=== PATIENT | female | born 1995 | race African-American/Black ===

== ENCOUNTER 2023-01-10 05:10 | Inpatient (IN) | payer BC ==
[2023-01-10 06:04] VITALS: BMI 41.9
[2023-01-10] MEDS ORDERED: Docusate 100 MG CAP PO PRN (06:04)
[2023-01-10] MEDS ORDERED: fentaNYL 50 mcg/mL 1 mL Vial SLOW IVP PRN (06:04)
[2023-01-10] MEDS ORDERED: Methylergonovine 0.2 MG/ML VIAL IM PRN (06:04)
[2023-01-10] MEDS ORDERED: Carboprost 250 MCG/ML AMP IM PRN (06:04)
[2023-01-10] MEDS ORDERED: Ondansetron PF 4 MG/2 ML Vial IVP PRN ×3 (06:04→16:11)
[2023-01-10] MEDS ORDERED: hydrALAZINE 20 MG/ML VIAL SLOW IVP PRN ×2 (06:04→16:11)
[2023-01-10] MEDS ORDERED: Tranexamic Acid 1,000 MG/10 ML VIAL IVP PRN (06:04)
[2023-01-10] MEDS ORDERED: Diphenoxylate HCl/Atropine Tablet PO PRN (06:04)
[2023-01-10] MEDS ORDERED: Promethazine HCl 25 MG/ML VIAL IM PRN ×3 (06:04→16:11)
[2023-01-10] MEDS ORDERED: Acetaminophen 500 MG TAB PO PRN (06:04)
[2023-01-10] MEDS ORDERED: Misoprostol 200 MCG TAB PR PRN (06:04)
[2023-01-10] MEDS ORDERED: Acetaminophen/Codeine 30-300mg Tablet PO PRN (06:06)
[2023-01-10] MEDS ORDERED: HYDROcodone/Acetaminophen 5/325 mg Tablet PO PRN (06:06)
[2023-01-10] MEDS ORDERED: Lidocaine 1% (PF) 30 ML VIAL SC PRN (06:06)
[2023-01-10] MEDS ORDERED: Ibuprofen 800 MG TAB PO PRN (06:06)
[2023-01-10] MEDS ORDERED: Oxytocin 30 units/NS 500 ML 500 ML IV SCH (06:15)
[2023-01-10] MEDS ORDERED: Lactated Ringer's 1,000 ML IV SCH (06:15)
[2023-01-10 06:54] LABS: Hematocrit 33.3 % (34.9-44.5); Hemoglobin 10.9 g/dL (12.0-15.5); Mean Corpuscular HGB CONC 32.7 g/dL (32.0-36.0); Mean Corpuscular Hemoglobin 25.2 pg (27.0-33.0); Mean Corpuscular Volume 76.9 fl (81.6-98.3); Platelet Count 163 10x3/uL (150-450); RBC Distribution Width 13.7 % (11.5-14.5); Red Blood Cell (RBC) Count 4.33 10x6/uL (3.90-5.03); White Blood Cell (WBC) Count 7.7 10x3/uL (3.5-10.5)
[2023-01-10 07:29] LABS: HBSAg Index 0.18 S/CO (0-0.99); Hep B Surf Ag - L&D Non-Reactive S/CO (NonReactive); Syphilis Antibody Nonreactive (Nonreactive); Syphilis Antibody Index 0.06 S/CO (<1.00 Non-Reactive)
[2023-01-10] MEDS ORDERED: Bupivacaine 0.25% HCL 30 ML VIAL ONE (08:00)
[2023-01-10] MEDS ORDERED: fentaNYL/Ropivacaine Epidural 100 ML ONE (10:46)
[2023-01-10] MEDS ORDERED: Naloxone HCl 0.4 mg/ml Vial IVP PRN ×2 (11:25)
[2023-01-10] MEDS ORDERED: Moisturizing Cream (Eucerin) 113 GM JAR TOP PRN (11:25)
[2023-01-10] MEDS ORDERED: Lactated Ringer's 500 ML IV PRN (11:25)
[2023-01-10] MEDS ORDERED: ePHEDrine Sulfate 50 MG/10 ML VIAL SLOW IVP PRN (11:25)
[2023-01-10] MEDS ORDERED: diphenhydrAMINE 50 MG/ML VIAL IVP PRN (11:25)
[2023-01-10] MEDS ORDERED: Acetaminophen 325 MG TAB PO PRN (11:25)
[2023-01-10] MEDS ORDERED: fentaNYL 2 mcg/Ropivacaine 0.2% Epidural 100 ML CADD EPIDURAL SCH (11:30)
[2023-01-10] MEDS ORDERED: Communication Order-Pharmacy FS SCH (11:30)
[2023-01-10] MEDS ORDERED: Lidocaine 1% (PF) 30 ML VIAL ONE (13:42)
[2023-01-10] MEDS ORDERED: Lanolin Ointment 7 GM TUBE TOP PRN (16:11)
[2023-01-10] MEDS ORDERED: Benzocaine-Menthol 82.5 ML CAN TOP PRN (16:11)
[2023-01-10] MEDS ORDERED: diphenhydrAMINE 25 MG CAP PO PRN (16:11)
[2023-01-10] MEDS ORDERED: Boostrix 0.5 ML (Tdap) VIAL (>/=7 yrs of age) IM ONE (16:11)
[2023-01-10] MEDS ORDERED: Milk Of Magnesia 30 ML UDCUP PO PRN (16:11)
[2023-01-10] MEDS ORDERED: Bisacodyl 10 MG SUPP PR PRN (16:11)
[2023-01-10] MEDS ORDERED: Preparation H Ointment 28 GM TUBE PR PRN (16:11)
[2023-01-10] MEDS: Ferrous Sulfate 325 MG TAB PO SCH (19:23)
[2023-01-10] MEDS: Ibuprofen 800 MG TAB PO SCH (21:04)
[2023-01-10] MEDS: Docusate 100 MG CAP PO SCH (21:04)
[2023-01-11] MEDS: HYDROcodone/Acetaminophen 5/325 mg Tablet PO PRN ×4 (00:53→20:18)
[2023-01-11] MEDS: Ibuprofen 800 MG TAB PO SCH ×2 (05:18→14:20)
[2023-01-11] MEDS: Ferrous Sulfate 325 MG TAB PO SCH ×2 (07:14→18:00)
[2023-01-11] MEDS ORDERED: Prenatal Vitamin 1 TAB PO SCH (09:00)
[2023-01-11] MEDS: Docusate 100 MG CAP PO SCH (10:38)
[2023-01-11 12:37] VITALS: BP 133/62; TEMP 98.5
== END 2023-01-11 21:40 | disposition home or self-care (01) | DRG 805 ==
LOC: CSHLD/OP 05:10 → CSHLD 06:18 → CSHANTE 18:24
PROVIDERS: ADMIT Student in an Organized Health Care Education/Training Program; ATTEND Student in an Organized Health Care Education/Training Program
PROC: 10E0XZZ Delivery of Products of Conception, External Approach (ICD-10-PCS; principal; 2023-01-10)
PROC: 0KQM0ZZ Repair Perineum Muscle, Open Approach (ICD-10-PCS; 2023-01-10)
PROC: 3E0234Z Introduction of Serum, Toxoid and Vaccine into Muscle, Percutaneous Approach (ICD-10-PCS; 2023-01-10)
DX: O42.02 Full-term premature rupture of membranes, onset of labor within 24 hours of rupture (principal); U07.1 COVID-19; Z37.0 Single live birth; O98.52 Other viral diseases complicating childbirth; Z3A.38 38 weeks gestation of pregnancy; Z79.82 Long term (current) use of aspirin; Z88.1 Allergy status to other antibiotic agents; O70.1 Second degree perineal laceration during delivery; Z67.41 Type O blood, Rh negative; Z23 Encounter for immunization
CPT/HCPCS: 36415; 51702; 85027; 85461; 86780; 86850; 86900; 86901; 87340; 90384; 96372; 99285; S0020